=== PATIENT | male | born 1960 | race American Indian/Alaskan Native ===

== ENCOUNTER 2017-10-31 10:02 | Outpatient (CLI) | payer MEDICAID ==
[2017-10-31 14:31] LABS: Monocytes Body Fluid 71.4 %; Total Cells Counted 35 /mm3
== END 2017-10-31 10:03 | disposition home or self-care (01) ==
LOC: LAB 10:02
PROVIDERS: ATTEND Orthopaedic Surgery
DX: M25.461 Effusion, right knee (principal); I10 Essential (primary) hypertension; M19.90 Unspecified osteoarthritis, unspecified site; Z86.73 Personal history of transient ischemic attack (TIA), and cerebral infarction without residual deficits
CPT/HCPCS: 85048; 87075; 87116; 89051

== ENCOUNTER 2018-03-13 09:43 | Outpatient (CLI) | payer MEDICAID ==
[2018-03-13] MEDS ORDERED: XYLOCAINE TOPICAL 4% TP NR (09:48)
[2018-03-13] MEDS ORDERED: SILVER NITRATE TP ONE (10:30)
== END 2018-03-13 09:44 | disposition home or self-care (01) ==
LOC: WOUND 09:43
PROVIDERS: ATTEND Surgery
DX: L97.322 Non-pressure chronic ulcer of left ankle with fat layer exposed (principal); I87.2 Venous insufficiency (chronic) (peripheral)
CPT/HCPCS: 29581

== ENCOUNTER 2018-03-20 08:21 | Outpatient (CLI) | payer MEDICAID ==
[2018-03-20] MEDS ORDERED: AD OINTMENT TP PRN (08:37)
[2018-03-20] MEDS ORDERED: XYLOCAINE TOPICAL 4% TP ONE (08:37)
== END 2018-03-20 08:22 | disposition home or self-care (01) ==
LOC: WOUND 08:21
PROVIDERS: ATTEND Surgery
DX: L97.322 Non-pressure chronic ulcer of left ankle with fat layer exposed (principal); I87.2 Venous insufficiency (chronic) (peripheral)
CPT/HCPCS: 29581; 87116; 87186; A6250

== ENCOUNTER 2018-03-24 12:10 | Outpatient (CLI) | payer MEDICAID | END 2018-03-24 12:11 | disposition home or self-care (01) | LOC: WOUND 12:10 | CPT/HCPCS: 29581 ==

== ENCOUNTER 2018-03-27 08:39 | Outpatient (CLI) | payer MEDICAID ==
[2018-03-27] MEDS ORDERED: XYLOCAINE TOPICAL 4% TP NR (08:41)
[2018-03-27] MEDS ORDERED: AD OINTMENT TP PRN (08:42)
== END 2018-03-27 08:40 | disposition home or self-care (01) ==
LOC: WOUND 08:39
PROVIDERS: ATTEND Surgery
DX: L97.322 Non-pressure chronic ulcer of left ankle with fat layer exposed (principal); I87.2 Venous insufficiency (chronic) (peripheral)
CPT/HCPCS: 29581; A6250

== ENCOUNTER 2018-03-31 11:42 | Outpatient (CLI) | payer MEDICAID | END 2018-03-31 11:43 | disposition home or self-care (01) | LOC: WOUND 11:42 | CPT/HCPCS: 29581 ==

== ENCOUNTER 2018-04-07 14:01 | Outpatient (CLI) | payer MEDICAID | END 2018-04-07 14:02 | disposition home or self-care (01) | LOC: WOUND 14:01 | CPT/HCPCS: 29581 ==

== ENCOUNTER 2018-04-10 08:28 | Outpatient (CLI) | payer MEDICAID ==
[2018-04-10] MEDS ORDERED: SILVER NITRATE TP ONE (09:17)
[2018-04-10] MEDS ORDERED: XYLOCAINE TOPICAL 4% TP ONE (09:17)
== END 2018-04-10 08:29 | disposition home or self-care (01) ==
LOC: WOUND 08:28
PROVIDERS: ATTEND Surgery
DX: L97.322 Non-pressure chronic ulcer of left ankle with fat layer exposed (principal); I87.8 Other specified disorders of veins
CPT/HCPCS: 29581

== ENCOUNTER 2018-04-14 09:04 | Outpatient (CLI) | payer MEDICAID | END 2018-04-14 09:05 | disposition home or self-care (01) | LOC: WOUND 09:04 | CPT/HCPCS: 29581 ==

== ENCOUNTER 2018-04-17 08:01 | Outpatient (CLI) | payer MEDICAID | END 2018-04-17 08:02 | disposition home or self-care (01) | LOC: WOUND 08:01 | CPT/HCPCS: 29581 ==

== ENCOUNTER 2018-04-21 12:24 | Outpatient (CLI) | payer MEDICAID | END 2018-04-21 12:25 | disposition home or self-care (01) | LOC: WOUND 12:24 | CPT/HCPCS: 29581 ==

== ENCOUNTER 2018-04-24 08:10 | Outpatient (CLI) | payer MEDICAID ==
[2018-04-24] MEDS ORDERED: SILVER NITRATE TP NR (08:38)
== END 2018-04-24 08:11 | disposition home or self-care (01) ==
LOC: WOUND 08:10
PROVIDERS: ATTEND Surgery
DX: L97.321 Non-pressure chronic ulcer of left ankle limited to breakdown of skin (principal); I87.2 Venous insufficiency (chronic) (peripheral)
CPT/HCPCS: 17250; 29581

== ENCOUNTER 2018-05-01 08:00 | Outpatient (CLI) | payer MEDICAID ==
[2018-05-01] MEDS ORDERED: XYLOCAINE TOPICAL 4% TP ONE (08:11)
[2018-05-01] MEDS ORDERED: AD OINTMENT TP PRN (08:13)
[2018-05-01] MEDS ORDERED: SILVER NITRATE TP ONE (08:15)
== END 2018-05-01 08:01 | disposition home or self-care (01) ==
LOC: WOUND 08:00
PROVIDERS: ATTEND Surgery
DX: I87.332 Chronic venous hypertension (idiopathic) with ulcer and inflammation of left lower extremity (principal); L97.318 Non-pressure chronic ulcer of right ankle with other specified severity; I87.2 Venous insufficiency (chronic) (peripheral)
CPT/HCPCS: 99213; A6250; G0463

== ENCOUNTER 2020-05-23 20:11 | Emergency (ER) | payer MEDICAID ==
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
--- NOTE | 2020-05-23 22:37 | XRay Report ---
LEFT TIBIA-FIBULA 2 VIEW(S) INDICATION / CLINICAL INFORMATION: left lowe leg laceration COMPARISON: None available. FINDINGS: BONES / JOINT(S): No acute fracture or subluxation. Total knee arthroplasty is noted without evidence of hardware loosening or failure. SOFT TISSUES: Soft tissue laceration noted of the lateral aspect of the distal leg with surrounding s oft tissue swelling and edema. ADDITIONAL FINDINGS: None. Signer Name: Nael Castrejon MD Signed: 05/23/2020 10:33 PM Workstation Name: [id number]
[2020-05-23] MEDS ORDERED: HYDROcodone/ACETAMINOPHEN 5-325 MG TAB PO ONE (23:49)
[2020-05-23] MEDS ORDERED: DIPHtheria,PERTUSSIS(ACELL),TETANUS VACCINE/PF 0.5 ML VIAL IM ONE (23:49)
[2020-05-23] MEDS ORDERED: SODIUM CHLORIDE 0.9% IRR 500 ML BOTTLE IR ONE (23:50)
[2020-05-23] MEDS ORDERED: LIDOCAINE 1%/EPINEPHRINE 1:100,000 VIAL (20 ML) INFILTRATI ONE (23:50)
[2020-05-23 23:57] VITALS: BP 132/74
[2020-05-24 00:44] LABS: Basophils % (Auto) 0.2 % (0.0-1.8); Hematocrit 42.4 % (35.5-45.6); Hemoglobin 14.5 gm/dl (11.8-15.2); Lymphocytes # (Auto) 0.8 K/mm3 (1.2-5.4); Mean Corpuscular HGB Conc 34 % (32-34); Mean Corpuscular Volume 102 fl (84-94); Monocytes # (Auto) 0.9 K/mm3 (0.0-0.8); Monocytes % (Auto) 7.7 % (0.0-7.3); Platelet Count 200 K/mm3 (140-440); Red Blood Count 4.16 M/mm3 (3.65-5.03); Red Cell Distribution Width 14.9 % (13.2-15.2)
[2020-05-24 00:51] LABS: Alanine Aminotransferase 92 units/L (7-56); Albumin 4.1 g/dL (3.9-5); Blood Urea Nitrogen 8 mg/dL (9-20); Calcium 8.4 mg/dL (8.4-10.2); Hemolysis Index 28
[2020-05-24 01:03] LABS: BUN/Creatinine Ratio 16
[2020-05-24] MEDS ORDERED: LIDOCAINE 2%/EPINEPHRINE 1:100,000 VIAL (20 ML) INFILTRATI ONE (01:11)
[2020-05-24] MEDS ORDERED: IBUPROFEN 600 MG TAB PO ONE (02:31)
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
== END 2020-05-24 03:24 | disposition home or self-care (01) ==
LOC: ED 20:11
DX: S81.812A Laceration without foreign body, left lower leg, initial encounter (principal); T14.8XXA Other injury of unspecified body region, initial encounter; I10 Essential (primary) hypertension; M19.90 Unspecified osteoarthritis, unspecified site; J45.909 Unspecified asthma, uncomplicated; Z98.890 Other specified postprocedural states; Z79.899 Other long term (current) drug therapy; W26.8XXA Contact with other sharp object(s), not elsewhere classified, initial encounter; Y93.89 Activity, other specified; Y92.89 Other specified places as the place of occurrence of the external cause; Y99.8 Other external cause status
CPT/HCPCS: 36415; 80053; 85025; 90471; 90715; 99283